=== PATIENT | female | born 1980 | race Two or more races ===

== ENCOUNTER 2018-03-26 11:59 | Inpatient (IN) | payer OTHER ==
[~2018-03-26] VITALS: Ht 157.5 cm; Wt 67.1 kg
[2018-03-26] MEDS ORDERED: PRENATAL TABLE1 EAC4 PO (12:44)
== END 2018-03-28 12:55 | DRG 775 ==
LOC: OB/GYN 11:59 → LDR 11:59 → OB/GYN 03-27 07:39
PROC: 10E0XZZ Delivery of Products of Conception, External Approach (ICD-10-PCS; principal; 2018-03-26)
PROC: 0KQM0ZZ Repair Perineum Muscle, Open Approach (ICD-10-PCS; 2018-03-26)
PROC: 0UQMXZZ Repair Vulva, External Approach (ICD-10-PCS; 2018-03-26)
PROC: 4A1HXCZ Monitoring of Products of Conception, Cardiac Rate, External Approach (ICD-10-PCS; 2018-03-26)
DX: O70.1 Second degree perineal laceration during delivery (principal); Z37.0 Single live birth; O71.82 Other specified trauma to perineum and vulva; O99.824 Streptococcus B carrier state complicating childbirth; Z3A.39 39 weeks gestation of pregnancy; O09.523 Supervision of elderly multigravida, third trimester

== ENCOUNTER 2020-01-17 19:46 | Emergency (ER) | payer OTHER ==
[~2020-01-17] VITALS: Ht 157.5 cm; Wt 54.4 kg
[~2020-01-17 19:46] MED LIST: PRENATAL TABLE1 EAC4 PO
== END 2020-01-17 22:46 | disposition home or self-care (01) ==
LOC: ER 19:46
DX: K29.70 Gastritis, unspecified, without bleeding (principal)